=== PATIENT | female | born 1945 ===

== ENCOUNTER 2019-02-24 10:59 | Emergency (ER) | payer OTHER ==
[~2019-02-24] VITALS: Ht 157.5 cm; Wt 88.0 kg
[~2019-02-24 10:59] MED LIST: ANCEF 1 GM IV; ATORVASTATIN CA20 MG; AVAPRO300 MG PO; BICARSIM80 MG; CATAFLAN PO; COMPLEX B-101 TAB.SA PO; DICY20TA; JANUMET XR 1001 EACH PO; LESINOPRIL PO; NAMENDA10 MG; NAMENDA10 MG PO; NAPROXEN500 MG; NORVASC2.5 M1; QUINAPRIL-HCTZ1 TA2; TRAM1TAB98 PO; VITAMIN B-1000 MCG/2 IJ; VITAMIN D22000 UNIT PO; VOLTAREN100 GM
[2019-02-24] MEDS ORDERED: ONDANSETRON ODT4 MG SL (16:26)
[2019-02-24] MEDS ORDERED: PEPCID AC20 MG PO (16:26)
== END 2019-02-24 17:36 | disposition home or self-care (01) ==
LOC: ER 10:59
DX: S00.83XA Contusion of other part of head, initial encounter (principal); R11.11 Vomiting without nausea; W22.8XXA Striking against or struck by other objects, initial encounter; Y93.89 Activity, other specified; Y92.89 Other specified places as the place of occurrence of the external cause; Y99.8 Other external cause status; K29.70 Gastritis, unspecified, without bleeding

== ENCOUNTER 2021-03-19 08:51 | Outpatient (CLI) | payer OTHER ==
[~2021-03-19 08:51] MED LIST changes: +ONDANSETRON ODT4 MG SL; +PEPCID AC20 MG PO
== END 2021-03-19 09:09 | disposition home or self-care (01) ==
LOC: TOM 08:51
PROVIDERS: ATTEND Internal Medicine Hematology & Oncology
DX: N63.0 Unspecified lump in unspecified breast (principal); Z12.31 Encounter for screening mammogram for malignant neoplasm of breast; D75.1 Secondary polycythemia; D51.1 Vitamin B12 deficiency anemia due to selective vitamin B12 malabsorption with proteinuria; M81.0 Age-related osteoporosis without current pathological fracture; R97.0 Elevated carcinoembryonic antigen [CEA]; G30.0 Alzheimer's disease with early onset; Z12.39 Encounter for other screening for malignant neoplasm of breast; E11.9 Type 2 diabetes mellitus without complications; E78.5 Hyperlipidemia, unspecified; I10 Essential (primary) hypertension
CPT/HCPCS: 71260; 74177; 76641; Q9965